=== PATIENT | female | born 1985 | race Caucasian/White ===

== ENCOUNTER 2019-03-09 13:30 | Inpatient (IN) | payer MEDICAID, OTHER ==
[2019-03-09] MEDS: ONDANSETRON 4 MG INJ IV ×3 (14:27→19:06)
[2019-03-09] MEDS: SOD CHLORIDE 0.9% 500 ML IV (14:27)
[2019-03-09] MEDS: morphine 2 MG INJ IV ×2 (14:28→15:51)
[2019-03-09 14:34] LABS: ADD MAN DIFF? NO
[2019-03-09 14:37] LABS: ABNORMAL IP MESSAGE 1; BASOPHILS % 0.3 % (0.0-2.0); HEMATOCRIT 34.5 % (37.0-47.0); HEMOGLOBIN 9.1 g/dl (12.0-16.0); LYMPHOCYTES # 0.6 10^3/ul (0.8-2.9); LYMPHOCYTES % 4.8 % (15.0-51.0); MEAN CORPUSCULAR HGB CONC 26.4 g/dl (32.0-37.0); MEAN CORPUSCULAR VOLUME 60.7 fl (82.0-101.0); MONOCYTE # 0.3 10^3/ul (0.3-0.9); MONOCYTES % 2.6 % (0.0-11.0); NEUTROPHIL # 10.5 10^3/ul (1.6-7.5); PLATELET COUNT 309 10^3/UL (140-415); RED BLOOD COUNT 5.68 10^6/ul (4.20-5.40); RED CELL DISTRIBUTION WIDTH 21.5 % (11.5-14.5)
[2019-03-09 14:37] LABS: WHITE BLOOD COUNT 11.4 10^3/ul (4.8-10.8)
[2019-03-09 14:38] LABS: POSITIVE DIFF @See below
[2019-03-09 14:42] LABS: ADD UMIC YES; UR ASCORBIC ACID NEGATIVE (NEGATIVE); UR BACTERIA FEW /HPF (NONE SEEN); UR BILIRUBIN (Dip) NEGATIVE (NEGATIVE); UR BLOOD (Dip) 1+ mg/dL (NEGATIVE); UR CLARITY CLEAR (CLEAR); UR COLOR YELLOW (YELLOW); UR GLUCOSE (Dip) 3+ mg/dL (NEGATIVE); UR KETONES (Dip) 2+ mg/dL (NEGATIVE); UR LEUKOCYTE ESTERASE (Dip) NEGATIVE Leu/ul (NEGATIVE); UR NITRITE (Dip) NEGATIVE (NEGATIVE); UR RBC 5 /HPF (0-5); UR SPECIFIC GRAVITY (Dip) 1.031 (1.003-1.030); UR TOTAL PROTEIN (Dip) 2+ mg/dl (NEGATIVE); UR UROBILINOGEN (Dip) NEGATIVE (NEGATIVE); UR WBC 4 /HPF (0-5)
[2019-03-09 14:54] LABS: ALANINE AMINOTRANSFERASE 44 IU/L (13-69); ALBUMIN 4.9 g/dl (3.3-4.9); ALBUMIN/GLOBULIN RATIO 1.22; ALKALINE PHOSPHATASE 100 IU/L (42-121); ANION GAP 18 (5-13); ASPARTATE AMINO TRANSFERASE 44 IU/L (15-46); BILIRUBIN,INDIRECT 0.4 mg/dl (0-1.1); BILIRUBIN,TOTAL 0.4 mg/dl (0.2-1.3); BLOOD UREA NITROGEN 8 mg/dl (7-20); CALCIUM 9.3 mg/dl (8.4-10.2); CARBON DIOXIDE 19 mmol/L (21-31); CHLORIDE 102 mmol/L (97-110); CREATININE 0.52 mg/dl (0.44-1.00); Estimated GFR > 60 mL/min (>60); GLUCOSE 320 mg/dl (70-220); LIPASE 108 U/L (23-300); POTASSIUM 4.2 mmol/L (3.5-5.1); SODIUM 139 mmol/L (135-144); TOTAL PROTEIN 8.9 g/dl (6.1-8.1)
[2019-03-09 16:01] LABS: HEMOGLOBIN A1C 11.5 % (0-5.9)
[2019-03-09] MEDS ORDERED: D10/0.45% NACL + KCL 40 MEQ 1,000 ML IV ×2 (16:57)
[2019-03-09] MEDS ORDERED: D10/0.45% NACL + KCL 30 MEQ 1,000 ML IV (16:57)
[2019-03-09] MEDS ORDERED: SOD CHLORIDE 0.9% 1,000 ML IV ×2 (16:57)
[2019-03-09] MEDS ORDERED: DEXTROSE 10%/0.45% NACL 1,000 ML IV ×2 (16:57)
[2019-03-09] MEDS ORDERED: NS + KCL 40 MEQ 1,000 ML IV ×2 (16:57)
[2019-03-09] MEDS ORDERED: NS + KCL 30 MEQ 1,000 ML IV (16:57)
[2019-03-09] MEDS ORDERED: MAGNESIUM HYDROXIDE 30ML CUP PO (17:00)
[2019-03-09] MEDS ORDERED: NACL 0.9% 3 ML SYG IV (17:00)
[2019-03-09] MEDS ORDERED: ALBUTEROL/IPRATROPIUM (NEB) 3 ML AMP HHN (17:00)
[2019-03-09] MEDS ORDERED: hydrALAzine 20 MG INJ IV (17:00)
[2019-03-09] MEDS ORDERED: HYDROCODONE/APAP (5/325) TAB PO (17:00)
[2019-03-09] MEDS ORDERED: LORAZEPAM 2 MG INJ IV (17:00)
[2019-03-09] MEDS ORDERED: DEXTROSE 50% 50 ML SYRINGE IV ×4 (17:00)
[2019-03-09] MEDS ORDERED: INSULIN REGULAR, HUMAN 100 UNIT in SOD CHLORIDE 0.9% 100 ML IV (17:00)
[2019-03-09] MEDS ORDERED: NITROGLYCERIN (SL) 0.4 MG TAB SL (17:00)
[2019-03-09 17:45] LABS: IRON 32 ug/dl (35-150)
[2019-03-09] MEDS: ACCU-CHEK XX ×7 (17:45→23:42)
[2019-03-09 17:54] LABS: % IRON SATURATION 6 % SAT (22-52); TOTAL IRON BINDING CAPACITY 513 ug/dl (241-421)
[2019-03-09] MEDS: LACTATED RINGER'S 760 ML IV (18:00)
[2019-03-09 18:01] LABS: FREE T4 (FREE THYROXINE) 0.95 ng/dl (0.79-2.35)
[2019-03-09] MEDS: HYDROmorphONE 1 MG/ML SYG IV ×2 (18:02→18:40)
[2019-03-09] MEDS: PIPER-TAZO 3.375 GM IV (PMX) 100 ML IVPB (19:03)
[2019-03-09 19:26] LABS: MODE ROOM AIR; MetHgb Venous 0.4 %; Sample Type Blood venous; Site VENOUS LINE; Venous COHb 0.4 %; Venous Oxygen Sat 71.6 mmHG (55.0-75.0); Venous Total Hemglobin 9.5 g/dl
[2019-03-09 19:31] LABS: ANION GAP 15 (5-13); BLOOD UREA NITROGEN 7 mg/dl (7-20); CALCIUM 8.8 mg/dl (8.4-10.2); CARBON DIOXIDE 17 mmol/L (21-31); CHLORIDE 103 mmol/L (97-110); CREATININE 0.42 mg/dl (0.44-1.00); Estimated GFR > 60 mL/min (>60); GLUCOSE 273 mg/dl (70-220); MAGNESIUM 1.6 mg/dl (1.7-2.5); PHOSPHORUS 2.9 mg/dl (2.5-4.9); SODIUM 135 mmol/L (135-144)
[2019-03-09] MEDS: NS + KCL 30 MEQ 1,000 ML IV (21:29)
[2019-03-09] MEDS: D10/0.45% NACL + KCL 30 MEQ 1,000 ML IV (21:32)
[2019-03-09] MEDS: INSULIN REGULAR, HUMAN 100 UNIT in SOD CHLORIDE 0.9% 100 ML IV (21:48)
[2019-03-09 22:13] LABS: ANION GAP 13 (5-13); BLOOD UREA NITROGEN 6 mg/dl (7-20); CALCIUM 8.7 mg/dl (8.4-10.2); CARBON DIOXIDE 20 mmol/L (21-31); CHLORIDE 102 mmol/L (97-110); CREATININE 0.52 mg/dl (0.44-1.00); Estimated GFR > 60 mL/min (>60); GLUCOSE 264 mg/dl (70-220); MAGNESIUM 1.6 mg/dl (1.7-2.5); PHOSPHORUS 3.8 mg/dl (2.5-4.9); POTASSIUM 3.8 mmol/L (3.5-5.1); SODIUM 135 mmol/L (135-144)
[2019-03-09] MEDS: SOD CHLORIDE 0.9% 1,000 ML IV (23:41)
[2019-03-09] MEDS: HEPARIN 5,000 UNIT/1 ML VIAL SC (23:42)
[2019-03-10] MEDS: ONDANSETRON 4 MG INJ IV (00:38)
[2019-03-10] MEDS: morphine 2 MG INJ IV (00:38)
[2019-03-10] MEDS: ACCU-CHEK XX ×10 (01:00→09:00)
[2019-03-10] MEDS: PIPER-TAZO 3.375 GM IV (PMX) 100 ML IVPB ×5 (01:27→23:27)
[2019-03-10 01:29] LABS: MODE ROOM AIR; MetHgb Venous 0.4 %; Sample Type Blood venous; Site VENOUS LINE; Venous COHb 1.2 %; Venous Oxygen Sat 90.4 mmHG (55.0-75.0); Venous Total Hemglobin 9.6 g/dl
[2019-03-10 01:42] LABS: ANION GAP 14 (5-13); BLOOD UREA NITROGEN 6 mg/dl (7-20); CALCIUM 8.9 mg/dl (8.4-10.2); CARBON DIOXIDE 19 mmol/L (21-31); CHLORIDE 107 mmol/L (97-110); CREATININE 0.51 mg/dl (0.44-1.00); Estimated GFR > 60 mL/min (>60); GLUCOSE 277 mg/dl (70-220); MAGNESIUM 1.8 mg/dl (1.7-2.5); PHOSPHORUS 2.3 mg/dl (2.5-4.9); POTASSIUM 3.8 mmol/L (3.5-5.1); SODIUM 140 mmol/L (135-144)
[2019-03-10] MEDS: INSULIN GLARGINE [LANTus] (100 UNITS/ML) SYG SC ×2 (04:12→12:25)
[2019-03-10] MEDS ORDERED: METOCLOPRAMIDE 10 MG INJ (04:52)
[2019-03-10] MEDS ORDERED: MIDAZOLAM 1 MG/ML 2 ML INJ (04:52)
[2019-03-10] MEDS: BUPIVACAINE 0.25%/EPI (SDV) 30 ML INJ INJ (05:00)
[2019-03-10] MEDS ORDERED: morphine SULFATE/PF (10 MG/10 ML) INJ (05:09)
[2019-03-10] MEDS ORDERED: FENTAnyl 50 MCG/ML VIAL ×2 (05:15→05:19)
[2019-03-10] MEDS ORDERED: CEFAZOLIN 1 GM INJ (05:35)
[2019-03-10] MEDS ORDERED: ROCURONIUM 50 MG INJ ×2 (05:35→06:17)
[2019-03-10] MEDS ORDERED: BUPIVACAINE 0.25%/EPI (SDV) 30 ML INJ (05:35)
[2019-03-10] MEDS ORDERED: PROPOFOL 20 ML (05:35)
[2019-03-10] MEDS ORDERED: ONDANSETRON 4 MG INJ (07:11)
[2019-03-10] MEDS ORDERED: NEOSTIGMINE 3 MG/3 ML SYRINGE (07:11)
[2019-03-10] MEDS ORDERED: KETOROLAC 30 MG INJ (07:11)
[2019-03-10] MEDS ORDERED: GLYCOPYRROLATE 0.4 MG INJ (07:11)
[2019-03-10] MEDS ORDERED: ROPIVACAINE 0.5 % 30 ML VIAL (07:18)
[2019-03-10 08:41] LABS: WHITE BLOOD COUNT 25.8 10^3/ul (4.8-10.8)
[2019-03-10 08:41] LABS: ABNORMAL IP MESSAGE 1; HEMATOCRIT 32.1 % (37.0-47.0); HEMOGLOBIN 8.4 g/dl (12.0-16.0); MEAN CORPUSCULAR HEMOGLOBIN 16.1 pg (29.0-33.0); MEAN CORPUSCULAR HGB CONC 26.2 g/dl (32.0-37.0); MEAN CORPUSCULAR VOLUME 61.5 fl (82.0-101.0); PLATELET COUNT 369 10^3/UL (140-415); RED BLOOD COUNT 5.22 10^6/ul (4.20-5.40); RED CELL DISTRIBUTION WIDTH 21.1 % (11.5-14.5)
[2019-03-10 08:46] LABS: POSITIVE DIFF @See below
[2019-03-10 08:47] LABS: ADD MAN DIFF? YES
[2019-03-10 08:57] LABS: ANION GAP 10 (5-13); BLOOD UREA NITROGEN 6 mg/dl (7-20); CALCIUM 7.7 mg/dl (8.4-10.2); CARBON DIOXIDE 20 mmol/L (21-31); CHLORIDE 110 mmol/L (97-110); CREATININE 0.68 mg/dl (0.44-1.00); Estimated GFR > 60 mL/min (>60); GLUCOSE 302 mg/dl (70-220); MAGNESIUM 1.6 mg/dl (1.7-2.5); PHOSPHORUS 3.3 mg/dl (2.5-4.9); SODIUM 140 mmol/L (135-144)
[2019-03-10 08:58] LABS: HDL CHOLESTEROL 38 mg/dl (34-82); LDL CHOLESTEROL,CALCULATED 112 mg/dl; TRIGLYCERIDES 200 mg/dl (0-149)
[2019-03-10 08:58] LABS: CHOLESTEROL 190 mg/dl (100-200)
[2019-03-10 09:01] LABS: INR 1.08; PROTIME 14.1 Sec (11.9-14.9); PT RATIO 1.1
[2019-03-10 09:02] LABS: PARTIAL THROMBOPLASTIN TIME 26.9 Sec (23.0-35.0)
[2019-03-10 09:05] LABS: HEMOGLOBIN A1C 11.8 % (0-5.9)
[2019-03-10] MEDS: PANTOPRAZOLE (EC) 40 MG TAB PO (09:23)
[2019-03-10] MEDS: LACTATED RINGER'S 1,000 ML IV ×3 (09:24→17:28)
[2019-03-10 09:27] LABS: CANCER ANTIGEN 125 20.2 U/ml (0.0-35.0)
[2019-03-10 09:35] LABS: CANCER ANTIGEN 19-9 < 1.4 U/ml (0.0-37.0)
[2019-03-10] MEDS: HEPARIN 5,000 UNIT/1 ML VIAL SC ×2 (09:46→21:03)
[2019-03-10] MEDS ORDERED: DEXTROSE 50% 50 ML SYRINGE IV ×2 (10:00)
[2019-03-10] MEDS ORDERED: GLUCAGON 1 MG INJ IM (10:00)
[2019-03-10] MEDS ORDERED: INSULIN GLARGINE [LANTus] (100 UNITS/ML) SYG SC (10:00)
[2019-03-10] MEDS ORDERED: GLUCOSE GEL 15 GRAM TUBE PO ×2 (10:00)
[2019-03-10] MEDS ORDERED: GLUCOSE GEL 15 GRAM TUBE BUCCAL (10:00)
[2019-03-10] MEDS ORDERED: POTASSIUM PHOSPHATE 20 MEQ in SOD CHLORIDE 0.9% 250 ML IVPB (10:00)
[2019-03-10 10:09] LABS: ANISOCYTOSIS 2+ (0-0); BAND NEUTROPHILS % (M) 8 % (0-4); GIANT THROMBO% (M) 1 % (0-0); HYPOCHROMASIA 1+ (0-0); LYMPHOCYTES #M 1.2 10^3/ul (0.8-2.9); LYMPHOCYTES % (M) 5 % (15-51); MICROCYTOSIS 2+ (0-0); MONOCYTE #M 2.8 10^3/ul (0.3-0.9); MONOCYTES % (M) 11 % (0-11); OVALOCYTES 1+ (0-0); PLATELET ESTIMATE NORMAL; POIKILOCYTOSIS 1+ (0-0); SEG NEUT #M 20.1 10^3/ul (1.6-7.5); SEGMENTED NEUTROPHILS (M) % 76 % (39-77); SMUDGE%M 5 % (0-0)
[2019-03-10] MEDS: MAGNESIUM SULFATE 1 GM/D5W 100 ML IVPB (10:53)
[2019-03-10] MEDS: INSULIN ASPART [NOVOLOG] 3 ML PEN SC ×3 (12:24→21:02)
[2019-03-10] MEDS: HYDROCODONE/APAP (5/325) TAB PO (17:28)
[2019-03-11] MEDS: ACETAMINOPHEN 325 MG TAB PO ×2 (00:22→18:46)
[2019-03-11] MEDS: ACCU-CHEK XX (01:43)
[2019-03-11] MEDS: IBUPROFEN 600 MG TAB PO ×2 (01:51→16:27)
[2019-03-11] MEDS: LACTATED RINGER'S 1,000 ML IV ×3 (01:55→19:52)
[2019-03-11 05:05] LABS: ADD MAN DIFF? NO
[2019-03-11 05:08] LABS: ABNORMAL IP MESSAGE 1; BASOPHILS % 0.2 % (0.0-2.0); EOSINOPHILS % 0.4 % (0.0-7.0); HEMATOCRIT 26.7 % (37.0-47.0); HEMOGLOBIN 7.2 g/dl (12.0-16.0); LYMPHOCYTES # 1.4 10^3/ul (0.8-2.9); LYMPHOCYTES % 14.9 % (15.0-51.0); MEAN CORPUSCULAR HEMOGLOBIN 16.5 pg (29.0-33.0); MEAN CORPUSCULAR VOLUME 61.1 fl (82.0-101.0); MONOCYTE # 0.9 10^3/ul (0.3-0.9); MONOCYTES % 9.7 % (0.0-11.0); NEUTROPHILS % 74.4 % (39.0-77.0); PLATELET COUNT 267 10^3/UL (140-415); RED BLOOD COUNT 4.37 10^6/ul (4.20-5.40); RED CELL DISTRIBUTION WIDTH 20.6 % (11.5-14.5)
[2019-03-11 05:08] LABS: WHITE BLOOD COUNT 9.4 10^3/ul (4.8-10.8)
[2019-03-11 05:19] LABS: POSITIVE DIFF @See below
[2019-03-11] MEDS: PANTOPRAZOLE (EC) 40 MG TAB PO (05:28)
[2019-03-11] MEDS: PIPER-TAZO 3.375 GM IV (PMX) 100 ML IVPB ×3 (05:28→18:00)
[2019-03-11 05:38] LABS: ANION GAP 7 (5-13); BLOOD UREA NITROGEN 4 mg/dl (7-20); CALCIUM 8.3 mg/dl (8.4-10.2); CARBON DIOXIDE 23 mmol/L (21-31); CHLORIDE 110 mmol/L (97-110); Estimated GFR > 60 mL/min (>60); GLUCOSE 250 mg/dl (70-220); POTASSIUM 3.3 mmol/L (3.5-5.1); SODIUM 140 mmol/L (135-144)
[2019-03-11] MEDS: INSULIN ASPART [NOVOLOG] 3 ML PEN SC ×6 (08:21→21:00)
[2019-03-11] MEDS: HEPARIN 5,000 UNIT/1 ML VIAL SC (08:23)
[2019-03-11] MEDS: INSULIN GLARGINE [LANTus] (100 UNITS/ML) SYG SC (08:23)
[2019-03-11] MEDS: HYDROCODONE/APAP (5/325) TAB PO ×2 (08:26→15:11)
[2019-03-11] MEDS: POTASSIUM CHLORIDE (SR) 20 MEQ TAB PO (11:08)
[2019-03-11 11:30] LABS: HEMATOCRIT 26.8 % (37.0-47.0); HEMOGLOBIN 7.2 g/dl (12.0-16.0)
[2019-03-11 12:22] LABS: ADD UMIC NO; UR ASCORBIC ACID NEGATIVE (NEGATIVE); UR BILIRUBIN (Dip) NEGATIVE (NEGATIVE); UR BLOOD (Dip) NEGATIVE (NEGATIVE); UR CLARITY CLEAR (CLEAR); UR COLOR COLORLESS (YELLOW); UR GLUCOSE (Dip) 2+ mg/dL (NEGATIVE); UR KETONES (Dip) NEGATIVE (NEGATIVE); UR LEUKOCYTE ESTERASE (Dip) NEGATIVE Leu/ul (NEGATIVE); UR NITRITE (Dip) NEGATIVE (NEGATIVE); UR SPECIFIC GRAVITY (Dip) 1.004 (1.003-1.030); UR TOTAL PROTEIN (Dip) NEGATIVE (NEGATIVE); UR UROBILINOGEN (Dip) NEGATIVE (NEGATIVE)
[2019-03-11 13:43] LABS: IMMEDIATE SPIN CROSSMATCH 1 2
[2019-03-12] MEDS: PIPER-TAZO 3.375 GM IV (PMX) 100 ML IVPB ×5 (00:09→16:54)
[2019-03-12] MEDS: ACCU-CHEK XX (00:44)
[2019-03-12] MEDS ORDERED: ACCU-CHEK XX (02:00)
[2019-03-12] MEDS: PANTOPRAZOLE (EC) 40 MG TAB PO (05:21)
[2019-03-12 05:22] LABS: ADD MAN DIFF? NO
[2019-03-12] MEDS: LACTATED RINGER'S 1,000 ML IV ×3 (05:22→19:52)
[2019-03-12] MEDS: HYDROCODONE/APAP (5/325) TAB PO (05:22)
[2019-03-12 06:18] LABS: ANION GAP 8 (5-13); BLOOD UREA NITROGEN 4 mg/dl (7-20); CALCIUM 8.4 mg/dl (8.4-10.2); CARBON DIOXIDE 24 mmol/L (21-31); CHLORIDE 109 mmol/L (97-110); CREATININE 0.54 mg/dl (0.44-1.00); Estimated GFR > 60 mL/min (>60); GLUCOSE 147 mg/dl (70-220); POTASSIUM 3.3 mmol/L (3.5-5.1); SODIUM 141 mmol/L (135-144)
[2019-03-12 07:22] LABS: ABNORMAL IP MESSAGE 1; BASOPHILS % 0.5 % (0.0-2.0); EOSINOPHILS # 0.1 10^3/ul (0.0-0.5); EOSINOPHILS % 1.8 % (0.0-7.0); HEMATOCRIT 32.6 % (37.0-47.0); HEMOGLOBIN 9.3 g/dl (12.0-16.0); LYMPHOCYTES # 1.4 10^3/ul (0.8-2.9); LYMPHOCYTES % 17.6 % (15.0-51.0); MEAN CORPUSCULAR HEMOGLOBIN 18.9 pg (29.0-33.0); MEAN CORPUSCULAR HGB CONC 28.5 g/dl (32.0-37.0); MEAN CORPUSCULAR VOLUME 66.1 fl (82.0-101.0); MONOCYTE # 0.7 10^3/ul (0.3-0.9); MONOCYTES % 8.7 % (0.0-11.0); NEUTROPHIL # 5.4 10^3/ul (1.6-7.5); NEUTROPHILS % 71.1 % (39.0-77.0); PLATELET COUNT 258 10^3/UL (140-415); RED BLOOD COUNT 4.93 10^6/ul (4.20-5.40)
[2019-03-12 07:22] LABS: WHITE BLOOD COUNT 7.7 10^3/ul (4.8-10.8)
[2019-03-12 07:27] LABS: POSITIVE DIFF @See below
[2019-03-12] MEDS: INSULIN ASPART [NOVOLOG] 3 ML PEN SC ×7 (08:55→21:00)
[2019-03-12] MEDS: INSULIN GLARGINE [LANTus] (100 UNITS/ML) SYG SC (08:56)
[2019-03-12] MEDS: IBUPROFEN 600 MG TAB PO (09:06)
[2019-03-12] MEDS: POTASSIUM CHLORIDE (SR) 20 MEQ TAB PO (17:51)
[2019-03-13] MEDS: PIPER-TAZO 3.375 GM IV (PMX) 100 ML IVPB ×3 (00:03→11:47)
[2019-03-13] MEDS: HYDROCODONE/APAP (5/325) TAB PO ×4 (00:03→20:49)
[2019-03-13] MEDS: ACCU-CHEK XX (01:25)
[2019-03-13] MEDS: PANTOPRAZOLE (EC) 40 MG TAB PO (05:07)
[2019-03-13 05:19] LABS: ADD MAN DIFF? NO
[2019-03-13 05:28] LABS: ABNORMAL IP MESSAGE 1; BASOPHILS % 0.3 % (0.0-2.0); EOSINOPHILS # 0.1 10^3/ul (0.0-0.5); EOSINOPHILS % 1.9 % (0.0-7.0); HEMATOCRIT 32.3 % (37.0-47.0); HEMOGLOBIN 9.2 g/dl (12.0-16.0); LYMPHOCYTES # 1.6 10^3/ul (0.8-2.9); LYMPHOCYTES % 20.5 % (15.0-51.0); MEAN CORPUSCULAR HEMOGLOBIN 18.7 pg (29.0-33.0); MEAN CORPUSCULAR HGB CONC 28.5 g/dl (32.0-37.0); MEAN CORPUSCULAR VOLUME 65.8 fl (82.0-101.0); MONOCYTE # 0.6 10^3/ul (0.3-0.9); MONOCYTES % 7.4 % (0.0-11.0); NEUTROPHIL # 5.3 10^3/ul (1.6-7.5); NEUTROPHILS % 69.6 % (39.0-77.0); PLATELET COUNT 264 10^3/UL (140-415); RED BLOOD COUNT 4.91 10^6/ul (4.20-5.40); RED CELL DISTRIBUTION WIDTH 26.2 % (11.5-14.5)
[2019-03-13 05:28] LABS: WHITE BLOOD COUNT 7.6 10^3/ul (4.8-10.8)
[2019-03-13 05:36] LABS: POSITIVE DIFF @See below
[2019-03-13 06:00] LABS: ANION GAP 12 (5-13); BLOOD UREA NITROGEN 6 mg/dl (7-20); CALCIUM 8.9 mg/dl (8.4-10.2); CARBON DIOXIDE 25 mmol/L (21-31); CHLORIDE 107 mmol/L (97-110); CREATININE 0.58 mg/dl (0.44-1.00); Estimated GFR > 60 mL/min (>60); GLUCOSE 122 mg/dl (70-220); POTASSIUM 3.5 mmol/L (3.5-5.1); SODIUM 144 mmol/L (135-144)
[2019-03-13] MEDS: INSULIN ASPART [NOVOLOG] 3 ML PEN SC ×7 (07:50→20:50)
[2019-03-13] MEDS: INSULIN GLARGINE [LANTus] (100 UNITS/ML) SYG SC (08:46)
[2019-03-13] MEDS: DOCUSATE SODIUM 100 MG CAP PO (21:15)
[2019-03-14] MEDS: ACCU-CHEK XX (02:00)
[2019-03-14] MEDS: LEVOFLOXACIN 750 MG TABLET PO (05:13)
[2019-03-14] MEDS: PANTOPRAZOLE (EC) 40 MG TAB PO (05:13)
[2019-03-14 05:21] LABS: ADD MAN DIFF? NO
[2019-03-14 05:27] LABS: ABNORMAL IP MESSAGE 1; BASOPHILS % 0.4 % (0.0-2.0); EOSINOPHILS # 0.2 10^3/ul (0.0-0.5); EOSINOPHILS % 2.8 % (0.0-7.0); HEMATOCRIT 33.4 % (37.0-47.0); HEMOGLOBIN 9.4 g/dl (12.0-16.0); LYMPHOCYTES # 1.7 10^3/ul (0.8-2.9); MEAN CORPUSCULAR HEMOGLOBIN 18.7 pg (29.0-33.0); MEAN CORPUSCULAR HGB CONC 28.1 g/dl (32.0-37.0); MEAN CORPUSCULAR VOLUME 66.4 fl (82.0-101.0); MONOCYTE # 0.6 10^3/ul (0.3-0.9); NEUTROPHIL # 4.1 10^3/ul (1.6-7.5); NEUTROPHILS % 61.4 % (39.0-77.0); PLATELET COUNT 338 10^3/UL (140-415); RED BLOOD COUNT 5.03 10^6/ul (4.20-5.40); RED CELL DISTRIBUTION WIDTH 26.1 % (11.5-14.5)
[2019-03-14 05:27] LABS: WHITE BLOOD COUNT 6.7 10^3/ul (4.8-10.8)
[2019-03-14 05:32] LABS: ANION GAP 9 (5-13); BLOOD UREA NITROGEN 9 mg/dl (7-20); CALCIUM 9.2 mg/dl (8.4-10.2); CARBON DIOXIDE 26 mmol/L (21-31); CHLORIDE 106 mmol/L (97-110); CREATININE 0.61 mg/dl (0.44-1.00); Estimated GFR > 60 mL/min (>60); GLUCOSE 130 mg/dl (70-220); POTASSIUM 4.1 mmol/L (3.5-5.1); SODIUM 141 mmol/L (135-144)
[2019-03-14 05:33] LABS: POSITIVE DIFF @See below
[2019-03-14] MEDS: INSULIN ASPART [NOVOLOG] 3 ML PEN SC ×4 (09:02→13:12)
[2019-03-14] MEDS: INSULIN GLARGINE [LANTus] (100 UNITS/ML) SYG SC (09:03)
== END 2019-03-14 16:38 | disposition home or self-care (01) | DRG 742 ==
LOC: FTE 13:30 → ICU 22:59 → MS1 03-10 18:35 → ICU 17:13
PROVIDERS: Hospitalist
PROC: 0WJJ0ZZ Inspection of Pelvic Cavity, Open Approach (ICD-10-PCS; principal; 2019-03-10 04:59)
PROC: 0UB20ZZ Excision of Bilateral Ovaries, Open Approach (ICD-10-PCS; 2019-03-10 04:59)
PROC: 0JNC0ZZ Release Pelvic Region Subcutaneous Tissue and Fascia, Open Approach (ICD-10-PCS; 2019-03-10 04:59)
PROC: 30233N1 Transfusion of Nonautologous Red Blood Cells into Peripheral Vein, Percutaneous Approach (ICD-10-PCS; 2019-03-10 04:59)
DX: N83.512 Torsion of left ovary and ovarian pedicle (principal); E11.10 Type 2 diabetes mellitus with ketoacidosis without coma; E66.9 Obesity, unspecified; Z68.34 Body mass index [BMI] 34.0-34.9, adult; N73.6 Female pelvic peritoneal adhesions (postinfective); N83.201 Unspecified ovarian cyst, right side; Z79.4 Long term (current) use of insulin; D64.9 Anemia, unspecified; R11.2 Nausea with vomiting, unspecified
CPT/HCPCS: 36415; 36430; 71045; 72196; 74176; 76856; 80048; 80053; 80061; 81001; 81003; 81025; 82803; 82962; 83036; 83540; 83690; 83735; 84100; 84439; 84443; 84703; 85014; 85018; 85025; 85610; 85730; 86301; 86304; 86850; 86900; 86901; 86920; 87040-91; 87081; 87086; 88104; 88305